=== PATIENT | female | born 1980 ===

== ENCOUNTER 2024-11-19 08:27 | Emergency (ER) | payer SELFPAY ==
[2024-11-19] MEDS ORDERED: Ibuprofen 800 MG TAB ONE (08:52)
[2024-11-19] MEDS ORDERED: predniSONE 20 MG TAB ONE (08:52)
== END 2024-11-19 09:28 | disposition home or self-care (01) ==
LOC: ERS 08:27
DX: M54.50 Low back pain, unspecified (principal); X50.1XXA Overexertion from prolonged static or awkward postures, initial encounter
CPT/HCPCS: 99282; J7512